=== PATIENT | female | born 1970 | race Caucasian/White ===

== ENCOUNTER 2019-07-24 14:02 | Emergency (ER) | payer OTHER ==
[2019-07-24 14:16] VITALS: BMI 30.7
--- NOTE | 2019-07-24 14:24 | PDOC ---
History of Present Illness - General Chief Complaint: Chest Pain Stated Complaint: RASH RT SIDE/CHEST PAIN LT SIDE Time Seen by Provider: 07/24/19 14:10 - History of Present Illness Initial Comments: The pt is a 49F w/ a history of recently diagnosed DM who is not on therapy who presents for evaluation of 2 days of left chest wall rash with pain and redness as well as 2-3 hours of left chest pain. The chest pain is sharp, non-radiating , worse with touch and deep inspiration, and not alleviated by anything she can identify. She has not taken anything for her pain. She denies fevers/chills, TALAMANTES, vision changes, SOB, abdominal pain, N/V/C/D, dysuria, hematuria, or blood in her stool. She denies having had pain or rash like this before. She endorses having varicella as a child but denies shingles as an adult 07/24/19 14:45 Past History - Past Medical History Allergies/Adverse Reactions: Allergies Allergy/AdvReac Type Severity Reaction Status Date / Time No Known Allergies Allergy Verified 07/24/19 14:09 Home Medications: Ambulatory Orders Gabapentin 300 mg PO TID #21 capsule 07/24/19 Valacyclovir HCl [Valtrex -] 1,000 mg PO TID #21 tablet 07/24/19 COPD: No HTN: Yes - Psycho Social/Smoking Cessation Hx Smoking History: Current every day smoker Number of Cigarettes Smoked Daily: 3 Information on smoking cessation initiated: No Hx Alcohol Use: No Drug/Substance Use Hx: No Review of Systems - Review of Systems Able to Perform ROS?: Yes Comments:: GENERAL/CONSTITUTIONAL: No fever or chills. No weakness HEAD, EYES, EARS, NOSE AND THROAT: No change in vision. No change in hearing. No sore throat CARDIOVASCULAR: +CP, denies shortness of breath RESPIRATORY: Denies cough, hemoptysis GASTROINTESTINAL: No nausea, vomiting, diarrhea or constipation GENITOURINARY: No dysuria, frequency, or change in urination MUSCULOSKELETAL: No joint or muscle swelling or pain. No neck or back pain SKIN: +R chest wall rash NEUROLOGIC: No headache, vertigo, loss of consciousness, or change in strength/ sensation ENDOCRINE: No increased thirst. No abnormal weight change HEMATOLOGIC/LYMPHATIC: No anemia, easy bleeding, or history of blood clots ALLERGIC/IMMUNOLOGIC: No hives or skin allergy 10/05/19 14:23 Is the patient limited [place] proficient: No *Physical Exam - Vital Signs Last Vital Signs Temp Pulse Resp BP Pulse Ox 97.5 F L 92 H 16 183/100 H 98 07/24/19 14:09 07/24/19 14:09 07/24/19 14:09 07/24/19 14:09 07/24/19 14:09 - Physical Exam Comments: GENERAL: Awake, alert, and oriented to person/place/time, in no acute distress HEAD: No signs of trauma, normocephalic, atraumatic EYES: PERRLA, EOMI, sclera anicteric, conjunctiva clear ENT: Hearing grossly normal, nares patent, oropharynx clear without exudates. Moist mucosa LUNGS: No distress, speaks in full sentences, clear to auscultation bilaterally HEART: Regular rate and rhythm, normal S1 and S2, no murmurs appreciated, peripheral pulses normal and equal bilaterally CHEST: Left upper chest wall TTP w/o rash, underlying bony crepitus, or ecchymosis ABDOMEN: Soft, nontender, normoactive bowel sounds. No guarding, no rebound EXTREMITIES: Normal inspection, Normal range of motion, no edema. No clubbing or cyanosis NEUROLOGICAL: Cranial nerves II through XII grossly intact. Normal speech, normal gait, no focal sensorimotor deficits SKIN: R chest wall erythema w/ three vesicles disbursed throughout the base 07/24/19 14:23 ED Treatment Course - LABORATORY CBC & Chemistry Diagram: 07/24/19 14:35 07/24/19 14:35 Medical Decision Making - Medical Decision Making The pt is a 49F who presents for evaluation of 2 days of right chest wall rash likely shingles, less likely cellulitis, and 2-3 hours of sharp left sided chest pain. ED Course CMP, CBC, Trop I -Will eval for ACS CXR ECG Pt does not want pain medication at this time 07/24/19 14:51 Pt w/ likely shingles Will give Valtrex and Gabapentin Rx for 7 days of each No leukocytosis No anemia Lytes unreamarkable LFTs mildly elevated, discussed w/ pt and discussed importance of following up with her PCP regarding the results Hyperglycemia, also discussed importance of following up with PCP and controlling her DM Trop I neg CXR w/o acute pathology ECG w/ NSR; HR 80; QTc 454; no axis deviation, no MARY Plan for D/C w/ PCP f/u Discharge instructions and return precautions given Pt in agreement and verbalized understanding Dispo: home 07/24/19 15:32 Discharge - Discharge Information Problems reviewed: Yes Clinical Impression/Diagnosis: Shingles Qualifiers: Herpes zoster complications: without complications Qualified Code(s): B02.9 - Zoster without complications Chest pain Qualifiers: Chest pain type: unspecified Qualified Code(s): R07.9 - Chest pain, unspecified Diabetes Qualifiers: Diabetes mellitus type: type 2 Diabetes mellitus oysterman insulin use: without oysterman use Diabetes mellitus complication status: without complication Qualified Code(s): E11.9 - Type 2 diabetes mellitus without complications Condition: Stable - Admission No - Additional Discharge Information Prescriptions: Gabapentin 300 mg PO TID #21 capsule Valacyclovir HCl [Valtrex -] 1,000 mg PO TID #21 tablet - Follow up/Referral Referrals: Luis Alberto Hensley [Primary Care Provider] - - Patient Discharge Instructions Patient Printed Discharge Instructions: DI for Shingles, DI for Chest Pain Additional Instructions: You were seen in the Emergency Department for evaluation of rash and chest pain. Your rash is likely due to shingles. A prescription for Valtrex and Gabapentin was sent to the pharmacy that you specified. Take each three times a day for 7 days. Review the handout provided at discharge. Follow up with your primary care provider. Be sure to bring up your high sugar and mildly elevated liver function tests. Return to the Emergency Department if you develop fevers/ chills, chest pain, trouble breathing, vision changes, worsening symptoms, or any new/concerning symptoms. - Post Discharge Activity
--- NOTE | 2019-07-24 14:33 | PDOC ---
Attending Attestation - Resident Resident Name: ClaudedarriusKrystian - ED Attending Attestation I have performed the following: I have examined & evaluated the patient, The case was reviewed & discussed with the resident, I agree w/resident's findings & plan, Exceptions are as noted - HPI HPI: 07/24/19 16:12 Ms Rooney is a 49 yo F w/ a history of recently diagnosed DM (not on medications) who presents for evaluation of right sided chest wall rash and discomfort Pt notes that yesterday when she went to work, her skin was normal While at work, she noted an area of irritation on her right side. When she got home she noted an area of erythema. Historically she had a history of urticaria, the cause was ultimately never determined. Patient with initially that this could be the cause of her right-sided chest wall rash. When the rash persisted, patient became concerned. Incidentally today while turning to the left she developed sharp left-sided chest pain. Pain is described as sharp, non-radiating, worse with touch and deep inspiration , and not alleviated by anything she can identify. She has not taken anything for her pain. She denies fevers/chills, TALAMANTES, vision changes, SOB, abdominal pain, N/V/C/D, dysuria, hematuria, or blood in her stool. She denies having had pain or rash like this before. She endorses having varicella as a child but denies shingles as an adult 07/24/19 14:45 - Physicial Exam PE: 07/24/19 16:15 GENERAL: The patient is in no acute distress. ENT: Ears normal, nares patent, oropharynx clear without exudates. Moist mucous membranes. NECK: Normal range of motion, supple LUNGS: Breath sounds equal, clear to auscultation bilaterally. No wheezes, and no crackles. HEART:Regular rate and rhythm, normal S1 and S2 without murmur, rub or gallop. ABDOMEN: Soft, nontender, normoactive bowel sounds. EXTREMITIES: Normal range of motion, no edema. MUSCULOSKELETAL: left chest wall with point tenderness to palpation, medial chest, near sternum NEUROLOGICAL: Cranial nerves II through XII grossly intact. Normal speech. No focal neurological deficits. SKIN: Right flank, T8/T9 distrubution, erythematous base noted. 3 small vesicular lesions noted, no crusting - Medical Decision Making 07/24/19 16:17 Laboratory Tests 07/24/19 07/24/19 07/24/19 14:35 14:35 14:35 WBC 7.3 Hgb 14.3 Hct 41.8 Plt Count 170 BUN 8.0 Creatinine 1.1 AST 151 H ALT 72 H Creatine Kinase 148 Troponin I < 0.02 EKG: Twelve-lead EKG was performed and reviewed by me. There is normal sinus rhythm with a normal rate. The axis is normal. The intervals are normal. There are no ST or T wave abnormalities. Impression: Normal twelve-lead EKG clinical impression: Likely Shingles Pt asked to follow the rash by taking pictures. Patient asked to return to emergency department for any other concerns or complaints, for systemic signs of illness, spreading of the rash Patient will also follow-up with her primary care physician regarding lab abnormalities, and initiation of oral hypoglycemic
[2019-07-24 14:52] LABS: HEMATOCRIT 41.8 % (32.4-45.2); HEMOGLOBIN 14.3 GM/dL (10.7-15.3); MCH 33.2 pg (25.7-33.7); MCHC 34.2 g/dl (32.0-36.0); MEAN CELL VOLUME 97.1 fl (80-96); MEAN PLT VOLUME 8.3 fl (7.5-11.1); MONO % 7.5 % (3.8-10.2); NEUT % 67.5 % (42.8-82.8); PLATELET COUNT 170 K/MM3 (134-434); RDW 13.6 % (11.6-15.6); WHITE BLOOD COUNT 7.3 K/mm3 (4.0-10.0)
[2019-07-24 15:14] LABS: ALBUMIN 3.7 g/dl (3.4-5.0); BILIRUBIN,TOTAL 0.8 mg/dL (0.2-1); CALCIUM 9.3 mg/dL (8.5-10.1); CREATININE 1.1 mg/dL (0.55-1.3); POTASSIUM 4.7 mmol/L (3.5-5.1); TOT PROT 8.3 g/dl (6.4-8.2)
[2019-07-24 15:18] VITALS: BP 174/85; PULSE 82; TEMP 98.2
[2019-07-24] MEDS ORDERED: valACYclovir HCL 1000 MG TABLET PO ONE (15:26)
[2019-07-24] MEDS ORDERED: GABAPENTIN 300 MG CAPSULE (FP) PO ONE (15:26)
[2019-07-24] MEDS ORDERED: GABAPENTIN 100 MG CAPSULE (FP) ONE (15:28)
[2019-07-24] MEDS ORDERED: valACYclovir HCL 500 MG TABLET (FP) ONE (15:28)
--- NOTE | 2019-07-25 11:40 | EKG ---
Test Reason : Blood Pressure : / mmHG Vent. Rate : 080 BPM Atrial Rate : 080 BPM P-R Int : 114 ms QRS Dur : 084 ms QT Int : 394 ms P-R-T Axes : 045 020 012 degrees QTc Int : 454 ms NORMAL SINUS RHYTHM NORMAL ECG NO PREVIOUS ECGS AVAILABLE Confirmed by GARRET CANDELARIO MD ([id number]) on 07/25/2019 11:40:27 AM Referred By: Confirmed By:GARRET CANDELARIO MD
== END 2019-07-24 15:58 | disposition home or self-care (01) ==
LOC: JER 14:02
DX: B02.9 Zoster without complications (principal); I10 Essential (primary) hypertension; E11.9 Type 2 diabetes mellitus without complications
CPT/HCPCS: 36415; 71045-TC-FY; 80053; 82550; 84484; 85025; 93005; 93010; 99284-25